=== PATIENT | male | born 1995 | race African-American/Black ===

== ENCOUNTER 2017-02-27 15:33 | Emergency (ER) | payer OTHER ==
[~2017-02-27] VITALS: Ht 193 cm; Wt 77.1 kg
--- NOTE | 2017-02-27 16:20 | PHYS DOC ---
Past Medical History Additional Past Surgical Histo: abscess incision and drainage Adult General Chief Complaint Chief Complaint: ABDOMINAL PAIN HPI HPI Patient is a 21 year old male who presents with one-week history of occasional mild nausea vomiting once or twice a day no diarrhea; no abdominal pain; occasional constipation last bowel movement yesterday; no fever. Patient sent home from work today. No prior abdominal surgeries. Review of Systems Review of Systems Constitutional: Denies fever or chills [] Eyes: Denies change in visual acuity, redness, or eye pain [] HENT: Denies nasal congestion or sore throat [] Respiratory: Denies cough or shortness of breath [] Cardiovascular: No additional information not addressed in HPI [] GI: Denies abdominal pain, bloody stools or diarrhea [] : Denies dysuria or hematuria [] Musculoskeletal: Denies back pain or joint pain [] Integument: Denies rash or skin lesions [] Neurologic: Denies headache, focal weakness or sensory changes [] Endocrine: Denies polyuria or polydipsia [] Current Medications Current Medications Current Medications Medications (Trade) Dose Ordered Sig/Buffy Start Time Stop Time Status Last Admin Dose Admin Ondansetron HCl (Zofran) 4 mg 1X ONCE 02/27/17 16:30 02/27/17 16:31 DC 02/27/17 16:34 4 MG Sodium Chloride 1,000 ml @ 1,000 mls/hr 1X ONCE 02/27/17 16:30 02/27/17 17:29 DC 02/27/17 16:35 1,000 MLS/HR Allergies Allergies Allergies Coded Allergies Type Severity Reaction Last Updated Verified No Known Drug Allergies 02/27/17 No Physical Exam Physical Exam Constitutional: Well developed, well nourished, no acute distress, non-toxic appearance. [] HENT: Normocephalic, atraumatic, bilateral external ears normal, oropharynx moist, no oral exudates, nose normal. [] Eyes: PERRLA, EOMI, conjunctiva normal, no discharge. [] Neck: Normal range of motion, no tenderness, supple, no stridor. [] Cardiovascular:Heart rate regular rhythm, no murmur [] Lungs & Thorax: Bilateral breath sounds clear to auscultation [] Abdomen: Bowel sounds normal, soft, no tenderness, no masses, no pulsatile masses. Completely benign nontender abdomen. Denies any scrotal swelling or pain. [] Skin: Warm, dry, no erythema, no rash. [] Back: No tenderness, no CVA tenderness. [] Extremities: No tenderness, no cyanosis, no clubbing, ROM intact, no edema. [] Neurologic: Alert and oriented X 3, normal motor function, normal sensory function, no focal deficits noted. [] Psychologic: Affect normal, judgement normal, mood normal. [] Current Patient Data Vital Signs Vital Signs Date Time Temp Pulse Resp B/P (MAP) Pulse Ox O2 Delivery O2 Flow Rate FiO2 02/27/17 17:22 52 16 101/56 (71) 100 Room Air 02/27/17 16:10 98.9 98.9 Lab Values Laboratory Tests Test 02/27/17 16:18 02/27/17 16:49 White Blood Count 5.9 x10^3/uL (4.0-11.0) Red Blood Count 5.16 x10^6/uL (4.30-5.70) Hemoglobin 15.2 g/dL (13.0-17.5) Hematocrit 46.1 % (39.0-53.0) Mean Corpuscular Volume 89 fL (79-100) Mean Corpuscular Hemoglobin 29 pg (25-35) Mean Corpuscular Hemoglobin Concent 33 g/dL (31-37) Red Cell Distribution Width 13.9 % (11.5-14.5) Platelet Count 205 x10^3/uL (140-400) Neutrophils (%) (Auto) 46 % (31-73) Lymphocytes (%) (Auto) 36 % (24-48) Monocytes (%) (Auto) 9 % (0-9) Eosinophils (%) (Auto) 8 % (0-3) H Basophils (%) (Auto) 1 % (0-3) Neutrophils # (Auto) 2.7 x10^3uL (1.8-7.7) Lymphocytes # (Auto) 2.2 x10^3/uL (1.0-4.8) Monocytes # (Auto) 0.5 x10^3/uL (0.0-1.1) Eosinophils # (Auto) 0.5 x10^3/uL (0.0-0.7) Basophils # (Auto) 0.1 x10^3/uL (0.0-0.2) Sodium Level 145 mmol/L (136-145) Potassium Level 3.6 mmol/L (3.5-5.1) Chloride Level 104 mmol/L (98-107) Carbon Dioxide Level 34 mmol/L (21-32) H Anion Gap 7 (6-14) Blood Urea Nitrogen 12 mg/dL (8-26) Creatinine 1.2 mg/dL (0.7-1.3) Estimated GFR (Cockcroft-Gault) 94.4 BUN/Creatinine Ratio 10 (6-20) Glucose Level 63 mg/dL (70-99) L Calcium Level 9.0 mg/dL (8.5-10.1) Total Bilirubin 0.5 mg/dL (0.2-1.0) Aspartate Amino Transferase (AST) 21 U/L (15-37) Alanine Aminotransferase (ALT) 22 U/L (16-63) Alkaline Phosphatase 79 U/L (46-116) Total Protein 7.0 g/dL (6.4-8.2) Albumin 4.0 g/dL (3.4-5.0) Albumin/Globulin Ratio 1.3 (1.0-1.7) Lipase 194 U/L (73-393) Urine Collection Type Unknown Urine Color Yellow Urine Clarity Cloudy Urine pH 7.0 Urine Specific [place] 1.020 Urine Protein Negative mg/dL (NEG-TRACE) Urine Glucose (UA) Negative mg/dL (NEG) Urine Ketones (Stick) Negative mg/dL (NEG) Urine Blood Negative (NEG) Urine Nitrite Negative (NEG) Urine Bilirubin Negative (NEG) Urine Urobilinogen Dipstick 0.2 mg/dL (0.2 mg/dL) Urine Leukocyte Esterase Negative (NEG) Urine RBC 0 /HPF (0-2) Urine WBC 0 /HPF (0-4) Urine Amorphous Sediment Present /HPF Urine Bacteria 0 /HPF (0-FEW) Urine Mucus Mod /LPF Laboratory Tests 02/27/17 16:18 Laboratory Tests 02/27/17 16:18 EKG EKG [] Radiology/Procedures Radiology/Procedures KUB[ full of stool per radiology] Course & Med Decision Making Course & Med Decision Making Pertinent Labs and Imaging studies reviewed. (See chart for details) []1725 PM reexamination patient is resting comfortably taking by mouth no complaints of abdominal pain. I discussed his labs, including what appears to be a contraction alkalosis secondary to vomiting with a bicarbonate of 34 and recommend he stop smoking marijuana daily. He denies any anorexia/bulimia. Dragon Disclaimer Donnyon Disclaimer This electronic medical record was generated, in whole or in part, using a voice recognition dictation system. Departure Departure Impression: Primary Impression: Vomiting Additional Impression: Constipation Disposition: HOME, SELF-CARE Condition: IMPROVED Patient Instructions: Cyclic Vomiting Syndrome, Nausea and Vomiting, Easy-to- Read Scripts Omeprazole Magnesium (PRILOSEC OTC) 20 Mg Tablet.dr 1 TAB PO DAILY, #30 TAB 3 Refills Prov: SUSAN ADHIKARI MD 02/27/17 Polyethylene Glycol 3350 (MIRALAX) 17 Gm Powd.pack 1 PACKET PO DAILY for CONSTIPATION, #30 PACKET 3 Refills Prov: SUSAN ADHIKARI MD 02/27/17 Ondansetron (ZOFRAN ODT) 4 Mg Tab.rapdis 4 MG PO TID Y for NAUSEA/VOMITING, #10 TAB Prov: SUSAN ADHIKARI MD 02/27/17 Problem Qualifiers SUSAN ADHIKARI MD Feb 27, 2017 16:20
[2017-02-27 16:27] LABS: BASO # 0.1 x10^3/uL (0.0-0.2); BASO % 1 % (0-3); EOS % 8 % (0-3); HEMATOCRIT 46.1 % (39.0-53.0); HEMOGLOBIN 15.2 g/dL (13.0-17.5); LYMPH # 2.2 x10^3/uL (1.0-4.8); LYMPH % 36 % (24-48); MEAN CORPUSCULAR HEMOGLOBIN 29 pg (25-35); MEAN CORPUSCULAR HGB CONC 33 g/dL (31-37); MEAN CORPUSCULAR VOLUME 89 fL (79-100); MONO % 9 % (0-9); NEUT % 46 % (31-73); PLATELET COUNT 205 x10^3/uL (140-400); RED BLOOD COUNT 5.16 x10^6/uL (4.30-5.70); RED CELL DISTRIBUTION WIDTH 13.9 % (11.5-14.5); WHITE BLOOD COUNT 5.9 x10^3/uL (4.0-11.0)
[2017-02-27] MEDS ORDERED: ONDANSETRON PF 4 MG/2 ML VIAL. IV ONE (16:30)
[2017-02-27] MEDS ORDERED: IV NORMAL SALINE 1000ML BAG 1,000 ML IV ONE (16:30)
--- NOTE | 2017-02-27 16:38 | RAD ---
Abdominal radiograph 02/27/2017 Indication: Nausea and vomiting with abdominal pain. Comparison: None available Technique: Single supine view the abdomen is provided. Findings: Supine technique limits evaluation for free intraperitoneal air. There are no dilated loops of small or large bowel. Gas is identified within the right colon. No suspicious calcifications are identified. Rectal gas is noted. No significant osseous abnormality is identified. Impression: Nonobstructive bowel gas pattern. Moderate amount fecal contents are present.
[2017-02-27 16:45] LABS: CREATININE 1.2 mg/dL (0.7-1.3); GFR 94.4; POTASSIUM 3.6 mmol/L (3.5-5.1)
[2017-02-27 16:51] LABS: ALBUMIN/GLOBULIN RATIO 1.3 (1.0-1.7); TOTAL BILIRUBIN 0.5 mg/dL (0.2-1.0)
[2017-02-27 17:05] LABS: BILIRUBIN,URINE NEGATIVE (NEG); GLUCOSE,URINE NEGATIVE (NEG); NITRITE,URINE NEGATIVE (NEG); PROTEIN,URINE NEGATIVE (NEG-TRACE); UROBILINOGEN,URINE 0.2 mg/dL (0.2 mg/dL)
[2017-02-27 17:10] LABS: BACTERIA,URINE 0 /HPF (0-FEW); RBC,URINE 0 /HPF (0-2); WBC,URINE 0 /HPF (0-4)
[2017-02-27 17:22] VITALS: BP 101/56
[2017-02-27] MEDS ORDERED: ONDA4TAB10 PO (17:31)
[2017-02-27] MEDS ORDERED: POLY17PO29 PO (17:31)
[2017-02-27] MEDS ORDERED: OMEP20TA63 PO (17:31)
== END 2017-02-27 18:00 | disposition home or self-care (01) ==
LOC: ER 15:33
DX: K59.00 Constipation, unspecified (principal)
CPT/HCPCS: 36415; 74000; 80053; 81001; 83690; 85025; 96361; 96374; 99285; J2405; J7030

== ENCOUNTER 2017-03-28 11:55 | Emergency (ER) | payer OTHER ==
[~2017-03-28] VITALS: Ht 193 cm; Wt 79.4 kg
[~2017-03-28 11:55] MED LIST: OMEP20TA63 PO; ONDA4TAB10 PO; POLY17PO29 PO
[2017-03-28] MEDS ORDERED: DEXAMETHASONE 4 MG TABLET PO STA (12:24)
[2017-03-28] MEDS ORDERED: IPRATRPIUM/ALBUTEROL 0.5/2.5MG 3 ML NEBU. NEB ONE (12:30)
--- NOTE | 2017-03-28 13:02 | RAD ---
2 views of the Chest 03/28/2017 2:24 PM Indication: COUGH X 3D Comparison: None Findings: There is no focal consolidation or infiltrate identified. There is no effusion or pneumothorax. The cardiomediastinal silhouette and pulmonary vasculature are within normal limits. No osseous abnormality is identified. Impression: No evidence of acute cardiopulmonary process.
[2017-03-28] MEDS ORDERED: PROAIR HFA8.5 GM INH (13:20)
[2017-03-28] MEDS ORDERED: HYDR-971 PO (13:20)
--- NOTE | 2017-03-28 13:20 | PHYS DOC ---
Past Medical History Past Medical History: No Pertinent History Past Surgical History: Other Additional Past Surgical Histo: abscess incision and drainage Alcohol Use: Rarely Drug Use: Marijuana Adult General Chief Complaint Chief Complaint: COUGH HPI HPI Patient is a 21 year old male presenting to the emergency department for evaluation of cough congestion and sore throat. She says that the symptoms have been going on for approximately 3 days and he has been coughing up yellowish mucus. He has had some sinus congestion and runny nose. He reports a fever of 1013 days ago. He denies any nausea vomiting abdominal pain or chest pain. Has that he is healthy and takes no medications and that he smokes marijuana but no cigarettes. Review of Systems Review of Systems Constitutional: + fever HENT: + nasal congestion, sore throat [] Respiratory: + cough, shortness of breath [] Cardiovascular: No additional information not addressed in HPI [] GI: Denies abdominal pain, nausea, vomiting, bloody stools or diarrhea [] Current Medications Current Medications Current Medications Medications (Trade) Dose Ordered Sig/Buffy Start Time Stop Time Status Last Admin Dose Admin Albuterol/ Ipratropium (Duoneb) 3 ml 1X ONCE 03/28/17 12:30 03/28/17 12:31 DC 03/28/17 12:42 3 ML Dexamethasone (Decadron) 10 mg 1X STAT 03/28/17 12:24 03/28/17 12:27 DC 03/28/17 12:35 10 MG Allergies Allergies Allergies Coded Allergies Type Severity Reaction Last Updated Verified No Known Drug Allergies 02/27/17 No Physical Exam Physical Exam Constitutional: Well developed, well nourished, no acute distress, non-toxic appearance. [] HENT: Normocephalic, atraumatic, bilateral external ears normal, oropharynx moist, no oral exudates, nose normal. [] Neck: Normal range of motion, no tenderness, supple, no stridor. [] Cardiovascular:Heart rate regular rhythm, no murmur [] Lungs & Thorax: Bilateral breath sounds diminished with inspiratory and expiratory wheezing throughout Current Patient Data Vital Signs Vital Signs Date Time Temp Pulse Resp B/P (MAP) Pulse Ox O2 Delivery O2 Flow Rate FiO2 03/28/17 12:42 97 Room Air 03/28/17 12:00 99.0 71 16 116/79 (91) 99.0 EKG EKG [] Radiology/Procedures Radiology/Procedures 2 views of the Chest 03/28/2017 2:24 PM Indication: COUGH X 3D Comparison: None Findings: There is no focal consolidation or infiltrate identified. There is no effusion or pneumothorax. The cardiomediastinal silhouette and pulmonary vasculature are within normal limits. No osseous abnormality is identified. Impression: No evidence of acute cardiopulmonary process. DICTATED and SIGNED BY: ISELA CORONADO MD DATE: 03/28/17 1257 Course & Med Decision Making Course & Med Decision Making Patient with upper respiratory tract infection type symptoms. Ammonia order concerning signs or symptoms for bacterial infection. Decadron and a breathing treatment here and his breath sounds improved significantly. He needs to have a normal oxygen saturation. Patient will be discharged with albuterol and recommended to use Nasonex and take Tylenol and ibuprofen for pain and fever. Patient aware and agreeable with plan for discharge and verbalized understanding of the need for short-term PCP follow-up in the strict ED return precautions discussed worsening pain shortness of breath or other general concerns. Dragon Disclaimer Dragon Disclaimer This electronic medical record was generated, in whole or in part, using a voice recognition dictation system. Departure Departure Impression: Primary Impression: URI (upper respiratory infection) Additional Impression: Wheezing Disposition: 01 HOME, SELF-CARE Condition: STABLE Referrals: NO PCP (PCP) Patient Instructions: Upper Respiratory Infection, Adult Additional Instructions: USE OTC NASONEX FOR YOUR SINUS CONGESTION. AVOID ANY SMOKING. COME BACK TO THE ED WITH WORSENING SHORTNESS OF BREATH, FEVERS, OR OTHER GENERAL CONCERNS. THANK YOU! Scripts Hydrocodone/Apap 5-325 (NORCO 5-325 TABLET) 1 Each Tablet 1 TAB PO PRN Q6HRS Y for COUGH, #12 TAB 0 Refills Prov: ROLAND REY DO 03/28/17 Albuterol Sulfate (PROAIR HFA INHALER) 8.5 Gm Hfa.aer.ad 1 PUFF INH Q4HRS Y for SHORTNESS OF BREATH, #1 INHALER 0 Refills Prov: ROLAND REY DO 03/28/17 Problem Qualifiers Primary Impression: URI (upper respiratory infection) URI type: unspecified viral URI Qualified Codes: J06.9 - Acute upper respiratory infection, unspecified; B97.89 - Other viral agents as the cause of diseases classified elsewhere ROLAND REY DO Mar 28, 2017 13:20
[2017-03-28] MEDS ORDERED: ALBUTEROL SULFATE 2.5 MG/3 ML NEBU. NEB ONE (13:30)
[2017-03-28 14:04] VITALS: BP 113/64
== END 2017-03-28 14:05 | disposition home or self-care (01) ==
LOC: ER 11:55
DX: J06.9 Acute upper respiratory infection, unspecified (principal); R06.2 Wheezing
CPT/HCPCS: 71020; 94250; 94640; 99285; J7613; J7620; J8540; 99284-25

== ENCOUNTER 2017-06-29 10:50 | Emergency (ER) | payer OTHER ==
[2017-06-29] MEDS: ONDANSETRON ODT 4 MG TAB.RAPDIS. PO ×2 (11:38)
[2017-06-29] MEDS: FAMOTIDINE 20 MG TABLET. PO ×2 (11:38)
== END 2017-06-29 11:57 | disposition home or self-care (01) ==
LOC: ER 10:50
DX: R11.2 Nausea with vomiting, unspecified (principal); R19.7 Diarrhea, unspecified
CPT/HCPCS: 99283; Q0162

== ENCOUNTER 2018-11-25 11:53 | Emergency (ER) | payer OTHER ==
[~2018-11-25] VITALS: Ht 190.5 cm; Wt 74.8 kg
[~2018-11-25 11:53] MED LIST changes: +ALBU2.5V8 INH; +FAMO-63 PO; +HYDR-3164 PO; +ONDA4TAB10 SL
[2018-11-25] MEDS ORDERED: ONDANSETRON PF 4 MG/2 ML VIAL. IV ONE (12:45)
--- NOTE | 2018-11-25 13:12 | PHYS DOC ---
Past Medical History Past Medical History: No Pertinent History Past Surgical History: Other Additional Past Surgical Histo: abscess incision and drainage Alcohol Use: Occasionally Drug Use: None Adult General Chief Complaint Chief Complaint: DIZZY/LIGHT HEADED HPI HPI Patient is a 23 year old male with no significant medical history who presents to the ED today complaining of poor appetite for 2 days. Patient states this morning woke up and he felt nauseated and vomited. He is also complaining intermittent episodes of dizziness and 8 out of 10 throbbing right-sided headache that began sometime this morning. Patient denies the headache waking him up. Denies this being the worst headache in his life. Denies anything exacerbating or relieving denies anything specifically exacerbating or relieving his dizziness. Review of Systems Review of Systems Constitutional: Denies fever or chills [] Eyes: Denies change in visual acuity, redness, or eye pain [] HENT: Denies nasal congestion or sore throat [] Respiratory: Denies cough or shortness of breath [] Cardiovascular: No additional information not addressed in HPI [] GI: Reports nausea and vomiting. Denies abdominal pain, bloody stools or diarrhea [] : Denies dysuria or hematuria [] Musculoskeletal: Denies back pain or joint pain [] Integument: Denies rash or skin lesions [] Neurologic: Reports headache and dizziness, denies focal weakness or sensory changes [] All other systems were reviewed and found to be within normal limits, except as documented in this note. Current Medications Current Medications Current Medications Medications (Trade) Dose Ordered Sig/Buffy Start Time Stop Time Status Last Admin Dose Admin Meclizine HCl (Antivert) 25 mg 1X ONCE 11/25/18 13:15 11/25/18 13:16 DC 11/25/18 13:03 25 MG Ondansetron HCl (Zofran) 4 mg 1X ONCE 11/25/18 12:45 11/25/18 12:47 DC 11/25/18 13:04 4 MG Sodium Chloride 1,000 ml @ 1,000 mls/hr 1X ONCE 11/25/18 13:15 11/25/18 14:14 DC 11/25/18 13:01 1,000 MLS/HR Allergies Allergies Allergies Coded Allergies Type Severity Reaction Last Updated Verified No Known Drug Allergies 02/27/17 No Physical Exam Physical Exam Constitutional: Well developed, well nourished, no acute distress, non-toxic appearance. [] HENT: Normocephalic, atraumatic, bilateral external ears normal, oropharynx moist, no oral exudates, nose normal. [] Eyes: PERRLA, EOMI, conjunctiva normal, no discharge. [] Neck: Normal range of motion, no tenderness, supple, no stridor. [] Cardiovascular:Heart rate regular rhythm, no murmur [] Lungs & Thorax: Bilateral breath sounds clear to auscultation [] Abdomen:Bowel sounds normal, soft, no tenderness, no masses, no pulsatile masses. [] Skin: Warm, dry, no erythema, no rash. [] Back: No tenderness, no CVA tenderness. [] Extremities: No tenderness, no cyanosis, no clubbing, ROM intact, no edema. [] Neurologic: Alert and oriented X 3, normal motor function, normal sensory function, no focal deficits noted. Cranial nerves II through XII intact Psychologic: Affect normal, judgement normal, mood normal. [] Current Patient Data Vital Signs Vital Signs Date Time Temp Pulse Resp B/P (MAP) Pulse Ox O2 Delivery O2 Flow Rate FiO2 11/25/18 13:06 48 16 100 11/25/18 12:20 98.7 111/62 (78) Room Air 98.7 Lab Values Laboratory Tests Test 11/25/18 12:50 11/25/18 14:30 White Blood Count 5.0 x10^3/uL (4.0-11.0) Red Blood Count 4.81 x10^6/uL (4.30-5.70) Hemoglobin 14.1 g/dL (13.0-17.5) Hematocrit 42.2 % (39.0-53.0) Mean Corpuscular Volume 88 fL (79-100) Mean Corpuscular Hemoglobin 29 pg (25-35) Mean Corpuscular Hemoglobin Concent 34 g/dL (31-37) Red Cell Distribution Width 13.2 % (11.5-14.5) Platelet Count 202 x10^3/uL (140-400) Neutrophils (%) (Auto) 72 % (31-73) Lymphocytes (%) (Auto) 17 % (24-48) L Monocytes (%) (Auto) 8 % (0-9) Eosinophils (%) (Auto) 2 % (0-3) Basophils (%) (Auto) 1 % (0-3) Neutrophils # (Auto) 3.6 x10^3/uL (1.8-7.7) Lymphocytes # (Auto) 0.9 x10^3/uL (1.0-4.8) L Monocytes # (Auto) 0.4 x10^3/uL (0.0-1.1) Eosinophils # (Auto) 0.1 x10^3/uL (0.0-0.7) Basophils # (Auto) 0.0 x10^3/uL (0.0-0.2) Sodium Level 138 mmol/L (136-145) Potassium Level 3.8 mmol/L (3.5-5.1) Chloride Level 101 mmol/L (98-107) Carbon Dioxide Level 29 mmol/L (21-32) Anion Gap 8 (6-14) Blood Urea Nitrogen 12 mg/dL (8-26) Creatinine 1.3 mg/dL (0.7-1.3) Estimated GFR (Cockcroft-Gault) 84.3 BUN/Creatinine Ratio 9 (6-20) Glucose Level 89 mg/dL (70-99) Calcium Level 9.5 mg/dL (8.5-10.1) Magnesium Level 1.8 mg/dL (1.8-2.4) Total Bilirubin 1.3 mg/dL (0.2-1.0) H Aspartate Amino Transferase (AST) 27 U/L (15-37) Alanine Aminotransferase (ALT) 25 U/L (16-63) Alkaline Phosphatase 61 U/L (46-116) Creatine Kinase 290 U/L (39-308) Creatine Kinase MB (Mass) 1.9 ng/mL (0.0-3.6) Creatine Kinase MB Relative Index 0.7 % (0-4) Troponin I Quantitative < 0.017 ng/mL (0.000-0.055) QE-Yzs-[id number]-Type Natriuretic Peptide 14 pg/mL (0-124) Total Protein 7.1 g/dL (6.4-8.2) Albumin 4.1 g/dL (3.4-5.0) Albumin/Globulin Ratio 1.4 (1.0-1.7) Lipase 55 U/L (73-393) L Thyroid Stimulating Hormone (TSH) 0.931 uIU/mL (0.358-3.74) Urine Opiates Screen Neg (NEG) Urine Methadone Screen Neg (NEG) Urine Barbiturates Neg (NEG) Urine Phencyclidine Screen Neg (NEG) Urine Amphetamine/Methamphetamine Neg (NEG) Urine Benzodiazepines Screen Neg (NEG) Urine Cocaine Screen Neg (NEG) Urine Cannabinoids Screen Pos (NEG) Urine Ethyl Alcohol Neg (NEG) Laboratory Tests 11/25/18 12:50 Laboratory Tests 11/25/18 12:50 EKG EKG [] Radiology/Procedures Radiology/Procedures [] Course & Med Decision Making Course & Med Decision Making Pertinent Labs and Imaging studies reviewed. (See chart for details) This is a 23-year-old male patient presenting to the ED today with poor appetite for 2 days, nausea, vomiting, dizziness, headache, since this morning. Labs are negative for any acute findings. Patient was given IV fluids and Zofran. On reevaluation his feeling better. He sitting on the edge of the bed with no distress. Patient could've been dehydrated. He was discharged to home. Instructed to push fluids. Follow-up with primary care doctor in 1-2 weeks. Dragon Disclaimer Dragon Disclaimer This electronic medical record was generated, in whole or in part, using a voice recognition dictation system. Departure Departure Impression: Primary Impression: Dehydration Disposition: 01 HOME, SELF-CARE Condition: STABLE Referrals: NO PCP (PCP) follow up with your doctor in one week Patient Instructions: Dehydration, Adult, [id number] Additional Instructions: You were evaluated in the emergency room with symptoms consistent of dehydration. Please avoid being out in the heat for long hours. Please push fluids. Follow-up with your doctor in 1-2 weeks. SHARAN ALEGRIA APRN Nov 25, 2018 13:12
[2018-11-25] MEDS ORDERED: IV NORMAL SALINE 1000ML BAG 1,000 ML IV ONE (13:15)
[2018-11-25] MEDS ORDERED: MECLIZINE HCL 12.5 MG TABLET. PO ONE (13:15)
[2018-11-25 13:21] LABS: BASO % 1 % (0-3); EOS # 0.1 x10^3/uL (0.0-0.7); EOS % 2 % (0-3); HEMATOCRIT 42.2 % (39.0-53.0); HEMOGLOBIN 14.1 g/dL (13.0-17.5); LYMPH # 0.9 x10^3/uL (1.0-4.8); LYMPH % 17 % (24-48); MEAN CORPUSCULAR HEMOGLOBIN 29 pg (25-35); MEAN CORPUSCULAR HGB CONC 34 g/dL (31-37); MEAN CORPUSCULAR VOLUME 88 fL (79-100); MONO # 0.4 x10^3/uL (0.0-1.1); MONO % 8 % (0-9); NEUT # 3.6 x10^3/uL (1.8-7.7); NEUT % 72 % (31-73); PLATELET COUNT 202 x10^3/uL (140-400); RED BLOOD COUNT 4.81 x10^6/uL (4.30-5.70); RED CELL DISTRIBUTION WIDTH 13.2 % (11.5-14.5)
--- NOTE | 2018-11-25 13:29 | RAD ---
EXAM: CHEST 1 VIEW History: Dizziness COMPARISON: 03/28/2017 TECHNIQUE: Single portable radiograph of the chest FINDINGS: The cardiac silhouette is unremarkable. The lungs are clear bilaterally. The costophrenic sulci are clear and well demarcated. IMPRESSION: No radiographic evidence of an acute cardiopulmonary process. Electronically signed by: Huy Laurent MD (11/25/2018 1:26 PM) [place] [id number]
[2018-11-25 13:33] LABS: CALCIUM 9.5 mg/dL (8.5-10.1); CREATININE 1.3 mg/dL (0.7-1.3); GFR 84.3; POTASSIUM 3.8 mmol/L (3.5-5.1)
--- NOTE | 2018-11-25 13:36 | EKG ---
[facility] [address] [place] [address] Test Date: 2018-11-25 Test Time: 13:13:31 Pat Name: ENMA HAYES Department: Room: Gender: M Homeopathic Doctor: : 1995 Requested By: SHARAN ALEGRIA Order Number: [id number] Reading MD: Measurements Intervals Rosalia Rate: 43 P: AK: QRS: 69 QRSD: 86 T: 12 QT: 452 QTc: 383 Interpretive Statements IRREGULAR RHYTHM, NO P-WAVE FOUND QRS(T) CONTOUR ABNORMALITY CONSISTENT WITH ANTEROSEPTAL MYOCARDIAL DAMAGE ABNORMAL ECG RI6.01 Unconfirmed report No previous ECG available for comparison
[2018-11-25 13:42] LABS: ALBUMIN 4.1 g/dL (3.4-5.0); ALBUMIN/GLOBULIN RATIO 1.4 (1.0-1.7); MAGNESIUM 1.8 mg/dL (1.8-2.4); TOTAL BILIRUBIN 1.3 mg/dL (0.2-1.0); TOTAL PROTEIN 7.1 g/dL (6.4-8.2)
[2018-11-25 14:00] VITALS: BP 117/68
[2018-11-25 14:50] LABS: BARBITURATES NEG (NEG); BENZODIAZEPINES NEG (NEG); CANNABINOIDS POS (NEG); COCAINE NEG (NEG); METHADONE NEG (NEG); OPIATES NEG (NEG); PHENCYCLIDINE NEG (NEG)
[2018-11-25 14:54] LABS: AMPHETAMINE/METHAMPHETAMINE NEG (NEG)
== END 2018-11-25 15:37 | disposition home or self-care (01) ==
LOC: ER 11:53
DX: E86.0 Dehydration (principal); R11.2 Nausea with vomiting, unspecified; R42 Dizziness and giddiness; R51 Headache
CPT/HCPCS: 36415; 71045; 80053; 80307; 82553; 83690; 83735; 83880; 84443; 84484; 85025; 93005; 96361; 96374; 99285; J2405; J7030; J8597